=== PATIENT | male | born 1985 | race Caucasian/White ===

== ENCOUNTER 2019-04-15 13:52 | Emergency (ER) | payer MEDICAID, OTHER ==
[~2019-04-15] VITALS: Ht 188 cm; Wt 106.2 kg
[2019-04-15 13:55] VITALS: BP 162/77
--- NOTE | 2019-04-15 14:18 | NUR ---
PT HAS CO OF NUMBNESS IN UPPER EXTREMETIES AND PAIN IN THE LEFT BICEP PT STATES THE NUMBNESS IS INTERMINTENT IN THE HANDS AND HAS BEEN GOING ON FOR A WHILE. PT ALSO STATES "I FEEL PUFFY IN THE HANDS". AT BEDSIDE.
[2019-04-15 14:31] LABS: BASOPHILS # (AUTO) 0.04 x10^3/uL (0-0.1); BASOPHILS % (AUTO) 1 % (0-1); EOSINOPHILS # (AUTO) 0.38 x10^3/uL (0-0.4); EOSINOPHILS % (AUTO) 5 % (1-7); LYMPHOCYTES % (AUTO) 29 % (22-44); MD NO; MEAN CORPUSCULAR HEMOGLOBIN 30.7 pg (27.5-34.5); MEAN CORPUSCULAR HGB CONC 32.8 g/dL (33.2-36.2); MEAN CORPUSCULAR VOLUME 93.6 fL (81-97); MEAN PLATELET VOLUME 7.6 fL (7.4-10.4); MONOCYTES # (AUTO) 0.59 x10^3/uL (0.2-0.8); MONOCYTES % (AUTO) 8 % (2-9); NEUTROPHILS # (AUTO) 4.04 x10^3/uL (1.8-6.8); NEUTROPHILS % (AUTO) 57 % (42-75); PLATELET COUNT 286 x10^3/uL (130-400); RED BLOOD COUNT 5.13 x10^6/uL (4.38-5.82); RED CELL DISTRIBUTION WIDTH 13.6 % (9.4-14.8)
[2019-04-15 14:42] LABS: ALANINE AMINOTRANSFERASE 258 U/L (12-78); ALBUMIN 3.7 g/dL (3.4-5.0); CALCIUM 8.1 mg/dL (8.5-10.1); CREATININE 1.45 mg/dL (0.7-1.3)
[2019-04-15 14:53] LABS: ANION GAP 8 mmol/L (5-15); CHLORIDE 109 mmol/L (98-107)
[2019-04-15 14:56] LABS: ALKALINE PHOSPHATASE 88 U/L (45-117); BILIRUBIN,TOTAL 0.6 mg/dL (0.2-1.0); TOTAL PROTEIN 6.9 g/dL (6.4-8.2)
--- NOTE | 2019-04-15 15:34 | NUR ---
Patient given discharge instructions and they have confirmed that they understand the instructions. Patient ambulatory with steady gait.
== END 2019-04-15 15:42 | disposition other institution (70) ==
LOC: ED 15:25
DX: M79.89 Other specified soft tissue disorders (principal); R20.2 Paresthesia of skin; M79.602 Pain in left arm
CPT/HCPCS: 36415; 80053; 85025; 99284

== ENCOUNTER 2021-05-06 23:38 | Emergency (ER) | payer MEDICAID ==
[~2021-05-06] VITALS: Ht 188 cm; Wt 89.3 kg
[2021-05-07 00:03] LABS: BASOPHILS % (AUTO) 1 % (0-1); EOSINOPHILS % (AUTO) 8 % (1-7); LYMPHOCYTES % (AUTO) 37 % (22-44); MEAN CORPUSCULAR HEMOGLOBIN 30.4 pg (27.5-34.5); MEAN CORPUSCULAR HGB CONC 34.7 g/dL (33.2-36.2); MEAN PLATELET VOLUME 7.3 fL (7.4-10.4); MONOCYTES % (AUTO) 18 % (2-9); NEUTROPHILS % (AUTO) 37 % (42-75); PLATELET COUNT 215 x10^3/uL (130-400); RED BLOOD COUNT 5.05 x10^6/uL (4.38-5.82); RED CELL DISTRIBUTION WIDTH 12.8 % (9.4-14.8)
[2021-05-07 00:08] LABS: ALBUMIN 3.5 g/dL (3.4-5.0); ANION GAP 3 mmol/L (5-15); CALCIUM 8.8 mg/dL (8.5-10.1); CHLORIDE 101 mmol/L (98-107); CREATININE 1.03 mg/dL (0.7-1.3)
--- NOTE | 2021-05-07 01:02 | NUR ---
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
--- NOTE | 2021-05-07 01:10 | NUR ---
break rn: pt resting on [facility], ekg/bp/spo2 monitoring in place. reports coming into the ed today due to increased anxiety and occassional palpitations [id number]. pt reports he feels as though his heart will start to race and he will get extremely anxious. denies dizziness or light headedness with these episodes but just "wanted to get checked out". pt currently denies any symptoms, states he is feeling well at this time. nad, bed in lowest, rails engaged, call light on lap, wctm.
[2021-05-07 01:26] VITALS: BP 131/80
--- NOTE | 2021-05-07 01:46 | NUR ---
Patient given discharge instructions and they have confirmed that they understand the instructions. Patient ambulatory with steady gait. NAD, all questions answered appropriately, denies additional needs at this time. No personal belongings left in room after discharge.
== END 2021-05-07 01:47 | disposition home or self-care (01) ==
LOC: ED 23:59
DX: R00.2 Palpitations (principal); R07.9 Chest pain, unspecified
CPT/HCPCS: 36415; 71045; 80048; 82040; 84439; 84443; 84481; 85025; 93005; 99285